=== PATIENT | male | born 2005 | race Caucasian/White ===

== ENCOUNTER 2023-05-21 19:03 | Emergency (ER) | payer OTHER, SELFPAY ==
[2023-05-21 19:13] VITALS: BP 118/67; PULSE 82; RESP 18; TEMP 36.7; O2SAT 99; BMI 23.6
[2023-05-21 19:31] LABS: Carboxyhemoglobin* 5.3 % (0.0-5.0)
--- NOTE | 2023-05-21 19:51 | ED_ITS ---
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 He is on no chronic medications he has no known allergies. He has a mild headache. Does not smoke cigarettes but does smoke marijuana he says pretty well daily. Does vape also. No other use of drugs, alcohol. Onset description: suddenly Severity: moderate Quality & Timing: dull Related Data Allergies Allergy/AdvReac Type Severity Reaction Status Date / Time No Known Drug Allergies Allergy Verified 05/21/23 19:17 Review of Systems Status of ROS: Reports: 10 or more systems reviewed and unremarkable except as noted in History and below Exam Narrative: Exam Narrative: Patient is seen in room 6 he is in no apparent distress, pupils equal round reactive to light there is no scleral icterus redness is TMs are normal oropharynx normal chest is clear bilaterally no wheezing crackles noted heart sounds are normal, easy respirations, abdomen is soft skin reveals no petechiae rashes there is no dee red complexion. Const: Vital Signs, click to edit/add: Vital Signs - 24 hr 05/21/23 19:13 Temperature 98.1 F Pulse Rate [Right Pulse Oximeter] 82 Respiratory Rate 18 Blood Pressure [Ri ght Upper Arm] 118/67 Pulse Oximetry 99 Oxygen Delivery Me thod Room Air Documenting provider has reviewed patient's vital signs: yes Course Vital Signs Vital signs: Initial Vital Signs Temperature 98.1 F 05/21/23 19:13 Temperature Source Temporal Artery Scan 05/21/23 19:13 Pulse Rate 82 05/21/23 19:13 Pulse Rhythm Regular 05/21/23 19:13 Pulse Strength 3+ Normal 05/21/23 19:13 Respiratory Rate 18 05/21/23 19:13 Blood Pressure 118/67 05/21/23 19:13 Blood Pressure Mean 84 05/21/23 19:13 Blood Pressure Position Sitting 05/21/23 19:13 Pulse Oximetry 99 05/21/23 19:13 Oxygen Delivery Method Room Air 05/21/23 19:13 Vital Signs Temperature 98.1 F 05/21/23 19:13 Pulse Rate 82 05/21/23 19:13 Respiratory Rate 18 05/21/23 19:13 Blood Pressure 118/67 05/21/23 19:13 Pulse Oximetry 99 05/21/23 19:13 Oxygen Delivery Method Room Air 05/21/23 19:13 Temperature 98.1 F 05/21/23 19:13 Pulse Rate 82 05/21/23 19:13 Respiratory Rate 18 05/21/23 19:13 Blood Pressure 118/67 05/21/23 19:13 Pulse Oximetry 99 05/21/23 19:13 Oxygen Delivery Method Room Air 05/21/23 19:13 MDM - Headache Differential Diagnosis Differential diagnosis: Likely migraine, tension headache, headache, sinusitis and postconcussion syndrome Medical Records Attestation: I reviewed the patient's medical records. Lab Data Attestation: I reviewed the patient's lab results. Labs: Lab Results 05/21/23 Range/Units 19:26 Carboxyhemoglobin 5.3 H (0.0-5.0) % Discharge Plan Discharge Clinical Impression: Headache, Carbon monoxide exposure Patient Disposition: Home w/ Parent or Adult Condition: Stable Instructions: Acute Headache (DC) Additional Instructions: Home rest you level is very low, fresh air, and follow-up as needed Stand Alone Forms: [facility] Info Instructions
== END 2023-05-21 20:11 | disposition home or self-care (01) ==
LOC: ED 19:58
PROVIDERS: Emergency Provider Family Medicine
DX: R51.9 Headache, unspecified (principal); T75.89XA Other specified effects of external causes, initial encounter
CPT/HCPCS: 82375; 93005; 99283